=== PATIENT | male | born 1985 | race Two or more races ===

== ENCOUNTER 2022-09-10 08:23 | Emergency (ER) | payer MEDICAID, OTHER ==
[~2022-09-10] VITALS: Ht 182.9 cm; Wt 122.3 kg
[2022-09-10 09:24] VITALS: BP 129/84
[2022-09-10] MEDS ORDERED: LORA-483 GT (10:34)
== END 2022-09-10 10:34 | disposition home or self-care (01) ==
LOC: ER 08:23
DX: R05.9 Cough, unspecified (principal); Z20.822 Contact with and (suspected) exposure to COVID-19
CPT/HCPCS: 36415; 87426; 87804